=== PATIENT | male | born 1955 | race Asian ===

== ENCOUNTER 2024-07-07 17:24 | Observation (INO) | payer OTHER ==
[2024-07-07 18:03] VITALS: BMI 31.1
[2024-07-07 19:03] LABS: BASO % 0.4 % (0-2.0); EOS % 1.6 % (0-4.5); HEMATOCRIT 41.8 % (35.4-49); HEMOGLOBIN 13.4 GM/dL (11.7-16.9); MCH 27.7 pg (25.7-33.7); MCHC 32.1 g/dl (32.0-35.9); MEAN CELL VOLUME 86.4 fl (80-96); PLATELET COUNT 102 10^3/uL (134-434); RBC 4.83 M/mm3 (4.00-5.60); RDW 14.7 % (11.9-15.9); WHITE BLOOD COUNT 2.5 K/mm3 (4.0-10.0)
[2024-07-07 19:08] LABS: INR 1.1 (0.83-1.09); PROTHROMBIN TIME (PATIENT) 12.6 SEC (9.7-13.0)
[2024-07-07 19:11] LABS: ACTIVATED PTT 34.2 SECONDS (25.2-36.5)
[2024-07-07 19:19] LABS: POTASSIUM 3.7 mmol/L (3.5-5.1)
[2024-07-07 19:21] LABS: CALCIUM 8.3 mg/dL (8.5-10.1)
[2024-07-07 19:22] LABS: ALBUMIN 3.3 g/dl (3.4-5.0); BLOOD UREA NITROGEN 14.5 mg/dL (7-18)
[2024-07-07 19:25] LABS: CREATININE 1.1 mg/dL (0.55-1.3)
[2024-07-07 19:27] LABS: BILIRUBIN,TOTAL 0.5 mg/dL (0.2-1); TOT PROT 6.4 g/dl (6.4-8.2)
[2024-07-07 19:30] LABS: N-TERMINAL BNP 207.6 pg/ml (5-125)
[2024-07-07] MEDS ORDERED: ACETAMINOPHEN INJECTION 100 ML ONE (20:27)
[2024-07-07] MEDS: SODIUM CHLORIDE 0.9% 1000 ML INFUS.BAG IV ONE (20:35)
[2024-07-07] MEDS: ACETAMINOPHEN 1000 MG/100 ML BAG IVPB ONE (20:35)
[2024-07-07] MEDS: OSELTAMIVIR PHOSPHATE 75 MG CAPSULE PO ONE (20:38)
[2024-07-08] MEDS ORDERED: ALBUTEROL SO4 2.5/IPRATROPIUM 0.5 INH SOL 3 ML VIAL.NEB. NEB PRN (00:56)
[2024-07-08] MEDS ORDERED: LEVALBUTEROL HCL 0.31 MG/3 ML VIAL.NEB IH PRN (04:37)
[2024-07-08 08:22] LABS: BASO % 0.3 % (0-2.0); EOS % 2.9 % (0-4.5); HEMATOCRIT 42.2 % (35.4-49); HEMOGLOBIN 14.3 GM/dL (11.7-16.9); MCH 28.6 pg (25.7-33.7); MCHC 33.9 g/dl (32.0-35.9); MEAN CELL VOLUME 84.5 fl (80-96); MEAN PLT VOLUME 9.1 fl (7.5-11.1); NEUT % 57.8 % (42.8-82.8); PLATELET COUNT 102 10^3/uL (134-434); RBC 4.99 M/mm3 (4.00-5.60); RDW 14.1 % (11.9-15.9); WHITE BLOOD COUNT 2.5 K/mm3 (4.0-10.0)
[2024-07-08 08:32] LABS: POTASSIUM 4.1 mmol/L (3.5-5.1)
[2024-07-08 08:40] LABS: ALBUMIN 3.2 g/dl (3.4-5.0)
[2024-07-08 08:41] LABS: BLOOD UREA NITROGEN 13.1 mg/dL (7-18); CALCIUM 8.5 mg/dL (8.5-10.1)
[2024-07-08 08:42] LABS: BILIRUBIN,TOTAL 0.4 mg/dL (0.2-1)
[2024-07-08] MEDS ORDERED: RANOLAZINE E.R. 1,000 MG TABLET (FP) PO SCH (10:00)
[2024-07-08] MEDS: methylPREDNISolone NA SUCC 40 MG/1 ML VIAL IVPUSH SCH (10:59)
[2024-07-08] MEDS: LOSARTAN POTASSIUM 50 MG TABLET PO SCH (10:59)
[2024-07-08] MEDS: ENOXAPARIN NA (PORCINE) 40 MG/0.4 ML DISP.SYRIN SQ SCH (10:59)
[2024-07-08] MEDS: HYDROCHLOROTHIAZIDE 12.5 MG CAPSULE (FP) PO SCH (11:00)
[2024-07-08] MEDS: ASPIRIN COATED 81 MG TABLET.EC PO SCH (16:02)
[2024-07-08] MEDS: ATORVASTATIN CA 20 MG TABLET (FP) PO SCH (21:11)
[2024-07-08] MEDS: OSELTAMIVIR PHOSPHATE 75 MG CAPSULE PO SCH (21:36)
[2024-07-09] MEDS: LACTATED RINGERS SOLUTION 1,000 ML/1,000 ML INFUS.BAG IV SCH (00:22)
[2024-07-09 08:43] LABS: POTASSIUM 3.7 mmol/L (3.5-5.1)
[2024-07-09 08:47] LABS: CALCIUM 8.6 mg/dL (8.5-10.1)
[2024-07-09 08:48] LABS: ALBUMIN 3.1 g/dl (3.4-5.0); BLOOD UREA NITROGEN 14.4 mg/dL (7-18); MAGNESIUM 1.9 mg/dL (1.8-2.4)
[2024-07-09 08:50] LABS: BASO % 0.1 % (0-2.0); HEMATOCRIT 43.2 % (35.4-49); HEMOGLOBIN 14.1 GM/dL (11.7-16.9); MCH 27.9 pg (25.7-33.7); MCHC 32.6 g/dl (32.0-35.9); MEAN CELL VOLUME 85.5 fl (80-96); MONO % 6.8 % (3.8-10.2); NEUT % 78.1 % (42.8-82.8); PLATELET COUNT 123 10^3/uL (134-434); RBC 5.05 M/mm3 (4.00-5.60); RDW 13.9 % (11.9-15.9); WHITE BLOOD COUNT 3.6 K/mm3 (4.0-10.0)
[2024-07-09 08:51] LABS: CREATININE 0.8 mg/dL (0.55-1.3)
[2024-07-09 08:52] LABS: BILIRUBIN,TOTAL 0.4 mg/dL (0.2-1); TOT PROT 5.9 g/dl (6.4-8.2)
[2024-07-09 23:48] VITALS: RESP 18
[2024-07-10 06:35] VITALS: TEMP 98
[2024-07-10] MEDS: methylPREDNISolone NA SUCC 40 MG/1 ML VIAL IVPUSH SCH (09:23)
[2024-07-10 09:54] LABS: HEMATOCRIT 44.6 % (35.4-49); HEMOGLOBIN 15.1 GM/dL (11.7-16.9); LYMPH % 7.3 % (8-40); MCH 28.6 pg (25.7-33.7); MCHC 33.8 g/dl (32.0-35.9); MEAN CELL VOLUME 84.5 fl (80-96); MEAN PLT VOLUME 9.5 fl (7.5-11.1); MONO % 4.9 % (3.8-10.2); NEUT % 87.8 % (42.8-82.8); PLATELET COUNT 146 10^3/uL (134-434); RBC 5.28 M/mm3 (4.00-5.60); RDW 14.3 % (11.9-15.9); WHITE BLOOD COUNT 7.3 K/mm3 (4.0-10.0)
[2024-07-10 10:13] LABS: POTASSIUM 3.8 mmol/L (3.5-5.1)
[2024-07-10 10:15] LABS: ALBUMIN 3.1 g/dl (3.4-5.0); BLOOD UREA NITROGEN 16.4 mg/dL (7-18); MAGNESIUM 1.9 mg/dL (1.8-2.4)
[2024-07-10 10:19] LABS: BILIRUBIN,TOTAL 0.5 mg/dL (0.2-1); TOT PROT 6.1 g/dl (6.4-8.2)
[2024-07-10 12:38] VITALS: BP 142/76; PULSE 64
== END 2024-07-10 14:47 | disposition home or self-care (01) ==
LOC: JER 17:24 → JERBED 22:55 → J4S 07-08 00:12
PROVIDERS: ADMIT Internal Medicine
PROC: 3E033NZ Introduction of Analgesics, Hypnotics, Sedatives into Peripheral Vein, Percutaneous Approach (ICD-10-PCS; principal; 2024-07-07)
PROC: 3E023GC Introduction of Other Therapeutic Substance into Muscle, Percutaneous Approach (ICD-10-PCS; 2024-07-07)
PROC: 3E033GC Introduction of Other Therapeutic Substance into Peripheral Vein, Percutaneous Approach (ICD-10-PCS; 2024-07-07)
PROC: 3E0337Z Introduction of Electrolytic and Water Balance Substance into Peripheral Vein, Percutaneous Approach (ICD-10-PCS; 2024-07-07)
DX: J09.X2 Influenza due to identified novel influenza A virus with other respiratory manifestations (principal); I11.9 Hypertensive heart disease without heart failure; I25.10 Atherosclerotic heart disease of native coronary artery without angina pectoris; E78.5 Hyperlipidemia, unspecified; I25.2 Old myocardial infarction; R55 Syncope and collapse; Z95.5 Presence of coronary angioplasty implant and graft; R94.31 Abnormal electrocardiogram [ECG] [EKG]; R53.1 Weakness; I44.7 Left bundle-branch block, unspecified; R00.1 Bradycardia, unspecified
CPT/HCPCS: 0241U-QW; 36415; 71045-TC-FY; 71250-TC; 80053; 82550; 82553; 82962; 83735; 83880; 84100; 84443; 84484; 85025; 85610; 85730; 93005; 93010; 93306-TC; 97116-GP; 97161-GP; 99285-25; G0378; J0131